=== PATIENT | female | born 2000 | race Caucasian/White ===

== ENCOUNTER 2023-11-12 06:15 | Emergency (ER) | payer BC, SELFPAY ==
--- NOTE | ~2023-11-12 | XR_ITS ---
Clinical Indication: Shortness of breath PA and lateral views of the chest: Comparison: None Findings: The lungs are clear, without evidence of focal consolidation or pleural effusion. Cardiome diastinal silhouette is within normal limits. Bones and soft tissues are unremarkable. Impression: Normal chest. Reviewed, dictated and finalized at location . Impression: Normal chest.
[2023-11-12 06:17] VITALS: BP 147/85; PULSE 105; RESP 20; TEMP 36.8; O2SAT 100
--- NOTE | 2023-11-12 06:21 | ECG_ITS ---
Measurements Intervals [place] Rate: 101 P: 55 [place]: 175 QRS: 42 QRSD: 89 T: 29 QT: 334 QTc: 435 Interpretive Statements SINUS TACHYCARDIA BASELINE ARTIFACT BORDERLINE ECG NO PREVIOUS ECG AVAILABLE FOR COMPARISON Electronically Signed On 11-12-2023 14:31:07 CDT by Blue Velasco M.D.
[2023-11-12 06:28] VITALS: O2SAT 100
[2023-11-12 06:30] VITALS: BP 127/81; PULSE 104; PULSE 109; RESP 18; TEMP 36.5; O2SAT 100
[2023-11-12 06:40] VITALS: O2SAT 100
--- NOTE | 2023-11-12 06:45 | PC.NURSE ---
Patient states that her pharmacy is [facility].
[2023-11-12 06:46] LABS: Basophils Percent Auto 0.5 % (0.2-1.2); Eosinophils Absolute Auto 0.6 K/mm3 (0-0.3); Eosinophils Percent Auto 7.6 % (0-4.4); Hematocrit 40.1 % (37.0-47.0); Hemoglobin 12.6 g/dL (12.0-15.0); Immature Granulocyte Absolute 0.01 K/mm3 (0.00-0.031); Immature Granulocyte Percent A 0.1 % (0-0.5); Lymphocytes Absolute Auto 1.32 K/mm3 (0.9-3.2); Mean Corpuscular HGB Conc 31.4 g/dl (32-36); Mean Corpuscular Hemoglobin 26.8 pg (26-34); Mean Corpuscular Volume 85.3 fl (80-100); Mean Platelet Volume 12.1 fl (7.4-10.4); Monocytes Absolute Auto 0.7 K/mm3 (0.1-0.6); Monocytes Percent Auto 9.9 % (2.6-8.5); Neutrophils Absolute Auto 4.7 K/mm3 (1.3-6.7); Neutrophils Percent Auto 63.9 % (45.5-73.1); Platelet Count Result 195 k/mm3 (150-375); Red Cell Distribution Width 13.8 % (11.5-14.5); White Blood Count 7.4 K/mm3 (4.5-10.0)
[2023-11-12 06:56] LABS: Alanine Aminotransferase 30 U/L (6-35); Alkaline Phosphatase 75 U/L (38-126); Anion Gap 4 mmol/L (4-12); Aspartate Amino Transferase 24 U/L (14-36); Bilirubin,Total 0.4 mg/dL (0.2-1.3); Blood Urea Nitrogen 10 mg/dL (7-17); Calcium 9.1 mg/dL (8.4-10.2); Carbon Dioxide 25 mmol/L (22-30); Chloride 107 mmol/L (98-107); Estimated CRCL calculation 146 ml/min; Estimated Glomerular Filt Rate > 60; Glucose 92 mg/dL (65-110); Potassium 3.8 mmol/L (3.4-5.0); Sodium 136 mmol/L (137-145)
[2023-11-12 07:12] LABS: Influenza A QL RT-PCR Negative (Negative); Influenza B QL RT-PCR Negative (Negative); RSV RNA, RT-PCR Negative (Negative); SARS-CoV-2 RNA PCR Negative (Negative)
[2023-11-12 07:31] VITALS: BP 121/74; PULSE 89; RESP 15; O2SAT 99
--- NOTE | 2023-11-12 07:39 | ED.GENADULT ---
HPI - General Adult General Chief complaint: Shortness of Breath/Dyspnea Stated complaint: asthma issues Time Seen by Provider: 11/12/23 07:06 History of Present Illness HPI narrative: Patient is a 23-year-old female who presents ER with concerns of shortness of breath. Worsening over last 4 days. Has some sinus congestion with sore throat. Has wet cough that is occasionally productive. She has had increased irritation of her asthma and has been using her inhaler more often. She had recently finished a steroid pack removed ago. No fevers or chills. She does suspect she has been around somebody with an illness. She reports mild tightness due to the breathing issues. Related Data Allergies Allergy/AdvReac Type Severity Reaction Status Date / Time No Known Allergies Allergy Unverified 11/29/14 23:32 Review of Systems Review of Systems: All systems reviewed & are unremarkable except as noted in HPI and below Constitutional: Constitutional: Reports no additional constitutional complaints ENT: Reports nasal congestion and Reports sore throat Cardiovascular: Cardiovascular: Reports no additional cardiovascular complaints Respiratory: Respiratory: Reports chest congestion, Reports cough and Reports dyspnea Gastrointestinal: Gastrointestinal: Reports no additional gastrointestinal complaints PMFSH Past Medical History Medical History (Updated 11/12/23 @ 07:43 by Maged Siegel MD) Asthma Surgical History Surgical History (Updated 11/12/23 @ 07:43 by Maged Siegel MD) No pertinent past surgical history Exam Narrative: GENERAL: Well-appearing, well-nourished, and in no acute distress. HEAD: Normocephalic, atraumatic. ENT: Mucous membranes moist. normal appearing posterior oropharynx. NECK: Supple. CHEST: Clear to auscultation. No respiratory distress. HEART: Regular rate and rhythm. Normal peripheral pulses. EXTREMITIES: Normal range of motion. No edema. NEURO: Alert and oriented x3. PSYCH: Normal mood and affect. Course Course Emergency Course: His symptoms are most consistent with URI. Discussed conservative treatment/supportive care and patient verbalized understanding. No significant lab abnormalities. Normal chest x-ray. Normal viral swab. Vital Signs Vital signs: Vital Signs Temperature 98.2 F 11/12/23 06:17 Pulse Rate 105 H 11/12/23 06:17 Respiratory Rate 20 11/12/23 06:17 Blood Pressure 147/85 H 11/12/23 06:17 Pulse Oximetry 100 11/12/23 06:17 Oxygen Delivery Room Air 11/12/23 06:17 Temperature 97.7 F 11/12/23 06:30 Pulse Rate 89 11/12/23 07:31 Respiratory Rate 15 11/12/23 07:31 Blood Pressure 121/74 11/12/23 07:31 Pulse Oximetry 99 11/12/23 07:31 Oxygen Delivery Room Air 11/12/23 06:40 Medical Decision Making Vital Signs Vital Signs: Vital Signs Temperature 98.2 F 11/12/23 06:17 Pulse Rate 105 H 11/12/23 06:17 Respiratory Rate 20 11/12/23 06:17 Blood Pressure 147/85 H 11/12/23 06:17 Pulse Oximetry 100 11/12/23 06:17 Oxygen Delivery Room Air 11/12/23 06:17 Temperature 97.7 F 11/12/23 06:30 Pulse Rate 89 11/12/23 07:31 Respiratory Rate 15 11/12/23 07:31 Blood Pressure 121/74 11/12/23 07:31 Pulse Oximetry 99 11/12/23 07:31 Oxygen Delivery Room Air 11/12/23 06:40 Lab Data 11/12/23 06:37 11/12/23 06:37 Labs: Lab Results 11/12/23 11/12/23 Range/Units 06:31 06:37 WBC 7.4 (4.5-10.0) K/mm3 RBC 4.70 (4.2-5.4) M/mm3 Hgb 12.6 (12.0-15.0) g/dL Hct 40.1 (37.0-47.0) % MCV 85.3 (80-100) fl MCH 26.8 (26-34) pg MCHC 31.4 L (32-36) g/dl RDW 13.8 (11.5-14.5) % Plt Count 195 (150-375) k/mm3 MPV 12.1 H (7.4-10.4) fl Immature Gran % (Auto) 0.1 (0-0.5) % Neut % (Auto) 63.9 (45.5-73.1) % Lymph % (Auto) 18.0 L (18.3-44.2) % Leslie % (Auto) 9.9 H (2.6-8.5) % Eos % (Auto) 7.6 H (0-4.4) %
[2023-11-12 08:00] VITALS: BP 121/74; PULSE 84; RESP 20; O2SAT 100
== END 2023-11-12 08:00 | disposition home or self-care (01) ==
PROVIDERS: Emergency Medicine; Emergency Provider Emergency Medicine
DX: J06.9 Acute upper respiratory infection, unspecified (principal); Z20.822 Contact with and (suspected) exposure to COVID-19; J45.909 Unspecified asthma, uncomplicated; R00.0 Tachycardia, unspecified
CPT/HCPCS: 36415; 71046; 80053; 85025; 87637; 93005; 99284